=== PATIENT | male | born 1950 | race Caucasian/White ===

== ENCOUNTER → 2022-03-30 | Outpatient (CLI) | payer MEDICARE | LOC: LAB 07:48 → LAB SHORT 07:48 → PLD 07:48 | DX: R22.0 Localized swelling, mass and lump, head (principal) | CPT/HCPCS: 88341; 88342 ==

== ENCOUNTER 2024-07-18 08:57 | Day surgery (SDC) | payer MEDICARE ==
[~2024-07-18] VITALS: Ht 177.8 cm; Wt 85.7 kg
[2024-07-18] VITALS (7 sets, daily range): BP systolic 121–170; BP diastolic 71–112
[~2024-07-18 08:57] MED LIST: AMLO5 PO; EUTHYROX175 MCG PO
[2024-07-18] MEDS ORDERED: NS 250 ML IV ONE (09:11)
[2024-07-18] MEDS ORDERED: Verapamil HCL 2.5 MG/ML 2ML Injection ONE (09:11)
[2024-07-18] MEDS ORDERED: NS 1,000 ML IV ONE ×2 (09:11→09:46)
[2024-07-18] MEDS ORDERED: Heparin Sodium 1000 Units/ML 10ML MDV ONE ×2 (09:11→11:02)
[2024-07-18] MEDS ORDERED: Nitroglycerin 2 MG/20 ML BTL ONE (09:12)
[2024-07-18] MEDS ORDERED: FentaNYL Citrate 50 MCG/ML 2 ML Injection ONE (09:46)
[2024-07-18] MEDS ORDERED: Midazolam HCl 1MG / ML 2ML Vial ONE (09:46)
[2024-07-18] MEDS ORDERED: Aspirin 325 MG Tab ONE (10:15)
--- NOTE | 2024-07-18 11:53 | NUR ---
ARRIVES FROM [facility]EARCH INTERN, A/O, AMBULATORY TO RESTROOM, SITE INTACT, 11 ML TR BAND RIGHT RADIAL. INTACT, OLD OOZING, NO OBVIOUS HEMATOMA AT PRESENT, GOOD PULSES PROX/DISTAL TO SITE. CALL LIGHT, VSS, GIVEN SANDWICH AND WATER AND CHIPS, TV SET UP AND IN EARLIER, WILL RETURN WHEN CLOSER TO D/C, OTHERWISE PENDING, RESTING, IVF INFUSING FOR 300 ML/H X [address] NAVARRETE, WILL CONTINUE TO MONITOR OTHERWISE.
--- NOTE | 2024-07-18 13:44 | NUR ---
PT TR BAND FULLY DEFLATED. NO BLEEDING OR HEMATOMA NOTED. VSS. NADN. CALL LIGHT CHRISTEL RICE.
--- NOTE | 2024-07-18 14:26 | NUR ---
PT AND S/O VERBALIZES UNDERSTANDING WRITTEN AND VERBAL INSTRUCTIONS. DENIES QUESITONS OR CONCERNS. VSS. NADN. PT R RADIAL TR BAND REMOVED. NO BLEEDING OR HEMATOMA NOTED. CLOTH DOT AND SPLINT IN PLACE. PT IV DC'D. CATH INTACT. PRESSURE DSG IN PLACE. NO BLEEDING NOTED. PT DRESSES SELF WITHOTUT DIFF. PT DC TO HOME VIA WC BY S/O
== END 2024-07-18 14:32 | disposition home or self-care (01) ==
LOC: MHTC 08:57
DX: I35.0 Nonrheumatic aortic (valve) stenosis (principal); I25.10 Atherosclerotic heart disease of native coronary artery without angina pectoris; E03.9 Hypothyroidism, unspecified; E05.00 Thyrotoxicosis with diffuse goiter without thyrotoxic crisis or storm; Z79.899 Other long term (current) drug therapy; Z88.0 Allergy status to penicillin; Z88.1 Allergy status to other antibiotic agents
CPT/HCPCS: 76937; 85347; 93460; 99152; 99153; A9270; C1769; C1887; C1894; J1644; J2250; J3010; J7030; J7050; Q9967